=== PATIENT | male | born 1965 | race Caucasian/White ===

== ENCOUNTER 2020-01-03 23:31 | Inpatient (IN) | payer SELFPAY ==
--- NOTE | ~2020-01-03 | US_ITS ---
EXAMINATION: US renal BI EXAM DATE: 01/04/2020 11:04 INDICATION: Elevated creatinine. TECHNIQUE: Multiple grayscale and Doppler images of the kidneys were obtained (by a technologist who performed the scan) and subsequently reviewed. There is no prior study for comparison. FINDINGS: Right kidney: There is normal contour and echogenicity. It measures 11.1 x 5.3 x 5.7 centimeters. Th ere is a cyst measuring 8 cm in size. There is no hydronephrosis. Left kidney: There is normal contour and echogenicity. It measures 12.0 x 5.9 x 6.2 centimeters. Th ere are no focal renal lesions identified. There is no hydronephrosis. Bladder unremarkable. IMPRESSION: 1. Right renal cyst. No hydronephrosis. Reviewed, dictated and finalized at location B.
--- NOTE | ~2020-01-03 | CT_ITS ---
EXAMINATION: CT brain wo con EXAM DATE: 01/04/2020 10:22 INDICATION: Headache. TECHNIQUE: Spiral CT of the head was performed without contrast. Axial, coronal and sagittal images were reviewed. The dose-length product (DLP) for this examination was 605.33 mGy-cm. The exposure w as tailored according to patient size, and iterative reconstruction (ASIR) was used as additional dos e reduction technique. Comparison is made to prior examination from 05/12/2011. FINDINGS: Interval development of 5 mm hypodensity in the left thalamus, age indeterminate infarction (no history of symptomatology has been provided to suggest patient is having acute infarction). Ther e is also 3 x 7 mm hypodensity in the right cerebellum brachium pontis consistent with old infarction . Both of these findings are new compared to 2010. There is no acute intraparenchymal hemorrhage. No evidence of intraparenchymal brain mass lesion. There is no mass effect or midline shift. The vent ricles are normal in size. There are no extra-axial collections. There are no acute calvarial fract ures. The orbits are unremarkable. Soft tissue is unremarkable. The visualized sinuses and mastoid air cells are well aerated. IMPRESSION: 1. Left thalamic hypodensity, age indeterminate infarction. Clinical correlation for acute versus ch ronic finding. 2. 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 3. Otherwise unremarkable head CT. Reviewed, dictated and finalized at location B. IMPRESSION: 1. Left thalamic hypodensity, age indeterminate infarction. Clinical correlati on for acute versus chronic finding. 2. 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 3. Otherwise unremarkable head CT.
--- NOTE | ~2020-01-03 | XR_ITS ---
XR chest 2V DATE: 01/04/2020 00:28 INDICATION: Shortness of breath TECHNIQUE: PA and lateral views COMPARISON: None FINDINGS: Cardiomegaly. There is pulmonary vascular congestion. There is interstitial prominence with bilateral Octavia B lines consistent with pulmonary interstitial edema as well as some prominence of the fissures consistent with subpleural edema. There is minimal infiltrate or atelectasis at the lung bases. There is minimal if any pleural effusio n. No pneumothorax. Osteopenia. IMPRESSION: Congestive heart failure, pulmonary interstitial and subpleural edema Reviewed, dictated and finalized at location A. IMPRESSION: Congestive heart failure, pulmonary interstitial and subpleural shay disla
--- NOTE | ~2020-01-03 | US_ITS ---
EXAMINATION: US retroperitoneal duplex ltd DATE: 01/05/2020 11:57 INDICATION: Hypertension. TECHNIQUE: Multiple grayscale, color Doppler, and pulsed Doppler images of the kidneys and renal camille lizy were obtained. COMPARISON: CT abdomen and pelvis 02/24/2010 FINDINGS: The aorta peak systolic velocity is 96 cm/s. The right renal artery peak systolic velocity is 68 cm/s in the proximal segment, 48 cm/s in the mid segment, and 46 cm/s in the distal segment. The left kian al artery peak systolic velocity is 81 cm/s in the proximal segment, 47 cm/s in the mid segment, and 82 cm/s in the distal segment. There is a 4.5 cm fusiform infrarenal aortic aneurysm. IMPRESSION: 1. No Doppler evidence of renal artery stenosis. Note that the CT from 02/24/2010 similarly demonstrat es no significant renal artery stenosis. 2. 4.5 cm fusiform infrarenal aortic aneurysm, new from 02/24/2010. Reviewed, dictated and finalized at location A. IMPRESSION: 1. No Doppler evidence of renal artery stenosis. Note that the CT from 0 similarly demonstrates no significant renal artery stenosis. 2. 4.5 cm fusiform infrarenal aortic aneurysm, new from 02/24/2010.
[2020-01-03 23:35] VITALS: BP 229/157; PULSE 68; RESP 12; TEMP 36.6; O2SAT 98
--- NOTE | 2020-01-03 23:37 | ED.SOB ---
HPI - SOB/Dyspnea General Chief Complaint: Shortness of Breath/Dyspnea Stated Complaint: sob Time Seen by Provider: 01/03/20 23:35 Source: patient and RN notes reviewed Mode of arrival: ambulatory Limitations: no limitations History of Present Illness HPI Narrative: Pt is a 54 y/o male who presents to the ED with c/o SOB and cough starting 5 days ago. He notes that he has been congested over the past several days, stating that he has been intermittently producing phlegm with his cough. Pt also reports a subjective fever as of several days ago, rhinorrhea, and chest discomfort. He currently denies any fever or chest pain. MD elicited complaint: shortness of breath and cough Onset (ago): day(s) (5) Associated symptoms: fever (subjective fever (resolved)), chest congestion and other (chest discomfort; rhinorrhea) Related Data Home Medications Medication Instructions Recorded Confirmed irbesartan mg 01/03/20 metoprolol tartrate 01/03/20 Allergies Allergy/AdvReac Type Severity Reaction Status Date / Time Penicillins Allergy Mild Unknown Verified 01/03/20 23:47 Review of Systems Review of Systems: All systems reviewed & are unremarkable except as noted in HPI and below Constitutional: Constitutional: Reports fever(s) (subjective fever (resolved)) Cardiovascular: Cardiovascular: Denies chest pain and Reports other (chest discomfort) Respiratory: Respiratory: Reports chest congestion, Reports cough and Reports dyspnea PMFSH Past Medical History Medical History HTN (hypertension) Surgical History Surgical History Hx of eye surgery Social History Social History Smoking packs per day: 0.5 Smoking cigarettes per day: 10.0 Smoking status: Current every day smoker Exam Narrative: Exam Narrative: APPEARANCE: nontoxic, resting in bed EYES: EOMI HEENT: Normocephalic, atraumatic, OMM RESPIRATORY: Mildrespiratory distress wheezing the bilateral upper lung zuniga with fine crackles in the bases CARDIOVASCULAR: Regular rate and rhythm without murmurs rubs or gallops. ABDOMINAL: Soft, nontender, nondistended, no rebound or guarding MUSCULOSKELETAl: Moves all extremities. No clubbing, cyanosis 2+ edema the bilateral lower extremities NEURO: Awake and alert. Following commands, speech normal, no focal deficits SKIN:: Warm, dry. No rashes lesions or abrasions PSYCHIATRIC: Normal affect/mood, Course Course Emergency Course: Patient states that he has been taking his blood pressure medication as prescribed including his metoprolol this evening Coronary discussed with Dr. Chaudhry continued elevated blood pressure. At this time we will switch to an ICU bed and place patient on a nitroglycerin drip Discussed with Dr. Rock for ICU who accepts admission to the ICU at this time Patient is sitting up in the side of the bed. States he just feels he needs to take a deep breath. Is currently satting 100% on room air and then when you engage the patient he is able to converse state in full sentences he does state he feels mildly anxious but does not wish to have any anxiety medication at this time blood gas was obtained to further assess respiratory status Discussed with patient and family results of workup and diagnosis. Discussed need for admission. Patient and family understand and agree to current treatment plan Consultations Consultation #1: Discussed case with hospitalist, Dr. Chaudhry. Accepted admission. Date: 01/04/20 Time: 01:10 Vital Signs Vital signs: Vital Signs Temperature 97.9 F 01/03/20 23:35 Pulse Rate 68 01/03/20 23:35 Respiratory Rate 12 01/03/20 23:35 Blood Pressure 229/157 H 01/03/20 23:35 Pulse Oximetry 98 01/03/20 23:35 Temperature 98.5 F 01/04/20 01:21 Pulse Rate 58 L 01/04/20 01:21 Respiratory Rate 23 H 01/04/20 01:21 Blood Pressure
--- NOTE | 2020-01-03 23:38 | ECG_ITS ---
Measurements Intervals [place] Rate: 68 P: 47 [place]: 190 QRS: -50 QRSD: 126 T: 118 QT: 431 QTc: 461 Interpretive Statements SINUS RHYTHM LEFT ATRIAL ENLARGEMENT LEFT ANTERIOR FASCICULAR BLOCK LEFT VENTRICULAR HYPERTROPHY AND ST-T CHANGE BASELINE ARTIFACT- V1, V3 BORDERLINE ECG Electronically Signed On 01-04-2020 7:00:52 CDT by Mario Sanchez D.O.
[2020-01-03 23:45] VITALS: PULSE 63; O2SAT 97
[2020-01-03] MEDS: methylPREDNISolone SOD SUCC 125 MG VIAL IV PUSH (23:50)
[2020-01-04] VITALS (29 sets, daily range): BP systolic 136–227; BP diastolic 78–142; PULSE 47–67; RESP 15–24; TEMP 36.6–37.1; O2SAT 94–100; BMI 26.2
[2020-01-04 00:15] LABS: Lactic Acid Reflex 0.9 mmol/L (0.7-2.1)
[2020-01-04 00:27] LABS: Basophils Absolute Auto 0.1 K/mm3 (0.0-0.1); Basophils Percent Auto 0.6 % (0.2-1.2); Eosinophils Absolute Auto 0.2 K/mm3 (0-0.3); Eosinophils Percent Auto 1.5 % (0-4.4); Hematocrit 46.6 % (42.0-52.0); Hemoglobin 14.9 g/dL (14.0-18.0); Immature Granulocyte Absolute 0.03 K/mm3 (0.00-0.031); Immature Granulocyte Percent A 0.3 % (0-0.5); Immature Platelet Fraction Pct 13.6 % (0.9-11.2); Lymphocytes Absolute Auto 2.18 K/mm3 (0.9-3.2); Lymphocytes Percent Auto 18.5 % (18.3-44.2); Mean Corpuscular Hemoglobin 31.2 pg (26-34); Mean Corpuscular Volume 97.5 fl (80-100); Mean Platelet Volume 13.6 fl (7.4-10.4); Monocytes Absolute Auto 1.1 K/mm3 (0.1-0.6); Monocytes Percent Auto 8.9 % (2.6-8.5); Neutrophils Absolute Auto 8.3 K/mm3 (1.3-6.7); Neutrophils Percent Auto 70.2 % (45.5-73.1); Platelet Count Result 149 k/mm3 (150-375); Red Blood Count 4.78 M/mm3 (4.6-6.20); Red Cell Distribution Width 13.8 % (11.5-14.5); White Blood Count 11.8 K/mm3 (4.5-10.0)
[2020-01-04 00:34] LABS: INR 1.1; Prothrombin Time 13.6 Seconds (11.1-14.7)
[2020-01-04 00:35] LABS: Partial Thromboplastin Time 33.7 SECONDS (22.3-36.8)
[2020-01-04 00:38] LABS: Blood Urea Nitrogen 32 mg/dL (9-20); Calcium 8.8 mg/dL (8.4-10.2); Carbon Dioxide 21 mmol/L (22-30); Chloride 109 mmol/L (98-107); Estimated CRCL calculation 49 ml/min; Estimated Glomerular Filt Rate 40; Glucose 114 mg/dL (75-110); Potassium 4.4 mmol/L (3.4-5.0); Sodium 138 mmol/L (137-145)
[2020-01-04] MEDS: hydrALAZINE HCL 20 MG/ML VIAL 10 MG IV PUSH (00:52)
[2020-01-04 00:56] LABS: NT Pro B Type Natriuretic Pept 28200 PG/ML (5-100); Troponin I 0.036 ng/mL (0.000-0.034)
[2020-01-04 00:57] LABS: Alanine Aminotransferase 64 U/L (4-50); Albumin Level 4.3 g/dL (3.5-5.1); Alkaline Phosphatase 75 U/L (38-126); Aspartate Amino Transferase 43 U/L (17-59); Bilirubin,Total 0.6 mg/dL (0.2-1.3)
[2020-01-04] MEDS: ASPIRIN 81 MG CHEWABLE TABLET 324 MG PO ×2 (01:18→08:00)
[2020-01-04] MEDS: FUROSEMIDE INJ 40 MG/4 ML VIAL IV PUSH ×2 (01:18→08:00)
[2020-01-04] MEDS: NITROGLYCERIN/D5W 200 MCG/ML 50 MG/250 ML BTL IV CONT (02:10)
[2020-01-04 02:15] LABS: Alveolar/Arterial O2 Gradient 44.9 mmHg; Base Excess ABG -3.3 mEq/l (+/-2.0); Device ROOM AIR; Fractional Inspired Oxygen 21 %; HCO3 ABG 18.5 mEq/l (22.0-26.0); Modified Allen's Test Pass; Oxygen Content ABG 21.8 %vol (16.0-22.0); Oxygen Saturation ABG 95.8 % (95.0-100.0); Oxyhemoglobin 94.6 % THb (90.0-100.0); PCO2 ABG 26.3 mmHg (35.0-45.0); PO2 ABG 73.3 mmHg (80.0-100.0); PO2 FiO2 Ratio Arterial Blood 3.49 %; Site Drawn LEFT RADIAL; Total Hemoglobin 16.4 g/dL (12.0-18.0); pH ABG 7.465 (7.350-7.450)
[2020-01-04] MEDS: IPRATROPIUM BR 0.02% INH SOLN 0.5 MG/2.5 ML VIAL INHALATION ×5 (02:30→19:42)
[2020-01-04] MEDS: ALBUTEROL SULFATE NEB 2.5 MG/0.5 ML INH 5 MG INHALATION ×5 (02:30→19:42)
--- NOTE | 2020-01-04 03:26 | PM.IMHP ---
H&P: HPI History of Present Illness Chief complaint: Shortness of breath Narrative: Date and time of patient contact: 01/04/2020 at 3:35 a.m. Matthew Palacios is a 54 year old male of longstanding uncontrolledhypertension who presented to the ER due to shortness of breath. Patient reports that he has had shortness breath and cough for the last 5 days. He reports he has not slept during that time as he feels like he will stop breathing if he falls asleep. His shortness of breath has been worse with exertion. Today while at work he reported that he had depend over grasping his thighs and gasp for air. He has noticed that his abdomen has been more swollen this week and actually had to go buy a new pair pants because they were cutting into his stomach. He also feels as if his chest is swollen. He has 1+ pitting edema to his ankles but he had not noticed swelling in his ankles. he had not seen a doctor from the time he was in high school through 52 years of age. He went to the doctor at that time because he was having similar symptoms to his current presentation. He has been taking his metoprolol as directed. He has also been taking ibersartan. His primary care physician increased 1 of his antihypertensives 3 weeks ago when he went to the office. Patient's blood pressures at that time were 180 systolic. He denies any palpitations. He has noticed that his urine has been a little bit darker recently. He denies any dysuria or changes in urinary frequency. He usually urinates 5-6 times in a 24 hour period. He denies any hematochezia or melena. He has been referred for a screening colonoscopy. Patient reports that he has chronic headaches. His headaches are usually 9/10 in intensity. He states that he will take Tylenol for 1 month for his headaches then switched to ibuprofen for month and naproxen. He has been taking naproxen this month to treat his headaches. He states that he chews the naproxen before he swallows it so that he gets faster relief. He denies any heartburn or indigestion. He has been having a cough with minimal sputum production. He does continue to smoke half a pack of cigarettes per day since he was 25 years old. He has been having some mild rhinorrhea. He denies any fevers or chills. 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 Review of Systems Review of Systems: Narrative: Except as documented in the HPI, all other systems were reviewed and are negative. [facility] Past Medical History Medical History HTN (hypertension) Surgical History Surgical History Hx of eye surgery Family History Family History (Updated 01/04/20 @ 05:20 by Stacy Chaudhry DO) Mother Aneurysm, cerebral Hypertension Father Hypertension Social History Social History (Updated 01/04/20 @ 05:26 by Stacy Chaudhry DO) Social History: primary care physician: Dr. Harsh Tristan code status: Full code Smoking packs per day: 1 Smoking cigarettes per day: 20.0 Years smoked: 30 Smoking pack-years: 30.00 Smoking status: Current every day smoker Tobacco type: cigarettes Second hand tobacco smoke exposure: No Additional smoking assessment comments: 0.5 pack to 1 pack cigarettes per day since 25 years old. Alcohol intake: current Alcohol use details: The patient will drink an alcoholic beverage once or twice a year. Substance use: former Additional living arrangements comments: His daughter and her fiance live on the lower level of the home. He lives up stairs. 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 Gender identity (if verbalized by the patient): Male Spiritual care concerns: No Agree to blood products: Yes Meds Home Medications
--- NOTE | 2020-01-04 03:44 | ECG_ITS ---
Measurements Intervals [place] Rate: 59 P: 33 [place]: [id number] QRS: -43 QRSD: 126 T: 130 QT: 480 QTc: 476 Interpretive Statements SINUS BRADYCARDIA LEFT ATRIAL ENLARGEMENT LEFT AXIS DEVIATION DELAYED PRECORDIAL R/S TRANSITION LEFT VENTRICULAR HYPERTROPHY AND ST-T CHANGE BORDERLINE ECG Electronically Signed On 01-04-2020 7:03:04 CDT by Mario Sanchez D.O.
[2020-01-04] MEDS: NITROGLYCERIN/D5W 200 MCG/ML 50 MG/250 ML BTL 15 MG IV CONT (04:26)
[2020-01-04 04:29] LABS: Amphetamine Screen Urine Negative (Negative); Barbiturate Screen Urine Negative (Negative); Benzodiazepines Screen Urine Negative (Negative); Cannabinoid Screen Urine Negative (Negative); Cocaine Screen Urine Negative (Negative); Methadone Screen Urine Negative (Negative); Opiate Screen Urine Negative (Negative); Phencyclidine Screen Urine Negative (Negative)
[2020-01-04 04:36] LABS: Creatinine Urine 7.4 mg/dL; Urea Random Urine 85 MG/DL
[2020-01-04 04:37] LABS: Sodium Urine Random 132 meq/L
[2020-01-04 05:43] LABS: Troponin I 0.035 ng/mL (0.000-0.034)
[2020-01-04] MEDS: ACETAMINOPHEN 325 MG TABLET 650 MG PO ×2 (06:23→15:11)
[2020-01-04] MEDS: METOPROLOL TARTRATE 50 MG TAB 100 MG PO ×2 (07:59→16:16)
[2020-01-04] MEDS: IRBESARTAN 150 MG TABLET PO (07:59)
[2020-01-04] MEDS: AMLODIPINE BESYLATE 5 MG TABLET 10 MG PO (07:59)
[2020-01-04] MEDS: ENOXAPARIN 40 MG/0.4 ML SYRINGE SUB-Q (08:00)
[2020-01-04 08:07] LABS: Blood Urea Nitrogen 29 mg/dL (9-20); Calcium 9.4 mg/dL (8.4-10.2); Carbon Dioxide 23 mmol/L (22-30); Chloride 102 mmol/L (98-107); Estimated CRCL calculation 58 ml/min; Estimated Glomerular Filt Rate 49; Glucose 151 mg/dL (75-110); Potassium 3.8 mmol/L (3.4-5.0); Sodium 139 mmol/L (137-145)
[2020-01-04 08:18] LABS: Troponin I 0.031 ng/mL (0.000-0.034)
[2020-01-04] MEDS: POTASSIUM CHLORIDE 20 MEQ TABLET PO (08:26)
[2020-01-04 08:50] LABS: Add Urine Microscopic? YES; Appearance Urine Clear (Clear); Bacteria Urine Trace /hpf; Bilirubin Urine Negative (Negative); Blood Urine 1+ (Negative); Color Urine Straw (Yellow); Glucose Urine UA Negative (Negative); Ketones Urine Negative (Negative); Leukocyte Esterase Ur Negative LEU/UL (NEGATIVE); Mucus Urine Rare /lpf; Nitrate Urine Negative (Negative); Protein Urine 1+ mg/dL (Negative); RBC Urine 0-2 /hpf (0-2); Specific Grav Ur 1.011 (1.001-1.035); Squamous Epithelial Cell Urine Rare /hpf (Few); Urobilinogen Urine Negative mg/dL (<2.0); WBC Urine 0-3 /hpf (0-3)
--- NOTE | 2020-01-04 08:56 | WPDCN ---
Assessment and Plan Assessment and plan (1) CHF (congestive heart failure): Code(s): I50.9 - Heart failure, unspecified Status: Acute Assessment and Plan: Patient has developed acute heart failure, probably diastolic, secondary to his severe hypertension. Echo is pending to rule out underlying cardiomyopathy Discussed low-salt diet,deleterious effects of hypertension on end organs, avoidance of nonsteroidals need for follow-up etcetera Will continue current therapy and gradually wean off the IV nitroglycerin, aiming not to drop the blood pressure too far too fast. Systolic BP of 1 40-170 is reasonable for now. I told the patient we would not expect his blood pressure to be perfect but a lot better by discharge. (2) Hypertensive emergency: Code(s): I16.1 - Hypertensive emergency Status: Acute Assessment and Plan: Uncontrolled hypertension Can check renin and aldosterone levels, serum metanephrines, renal artery ultrasound etc. but likely this is simply essential hypertension (3) Acute renal insufficiency: Code(s): N28.9 - Disorder of kidney and ureter, unspecified Status: Acute Assessment and Plan: Acute renal insufficiency secondary to either uncontrolled hypertension (4) Tobacco use: Code(s): Z72.0 - Tobacco use Status: Acute (5) Elevated troponin: Code(s): R79.89 - Other specified abnormal findings of blood chemistry Status: Acute Assessment and Plan: Secondary to severe hypertension and CHF, no ACS HPI Data of Consult Date/Time: 01/03/20 08:56 Requesting Physician: Stacy Chaudhry DO Primary Care Provider: Harsh Tristan MD Consult Narrative Narrative: Date of service: 01/04/2020 Matthew Palacios is a 54 year old male were asked to see at the request of Dr. Chaudhry for advice and opinion regarding his hypertensive emergency and congestive heart failure, in consultation. Mr. Palacios has had hypertension for last 2 years and has been on treatment for about [address] Tristan increased his irbesartan about a month ago. Sounds like his blood pressure has not been near goal. The patient started having trouble with shortness of breath on Wednesday which progressed so that he was coughing and at times gasping for breath. He felt like his abdomen was swelling although he denied extremity edema. His headaches seem to be worse. PND, orthopnea, or chest pain. He came to the emergency room with shortness of breath and cough and was found to have a blood pressure of 229/157. He was in congestive heart failure. He has been admitted to the ICU on a nitroglycerin drip, which was up to 80 mics per minute now down to 45 mics per minute. In addition to his irbesartan and metoprolol, he has been given amlodipine furosemide and clonidine was just started. He is feeling better now but has cramping of his calf. The patient loves salt and salts everything. He also takes ibuprofen and Aleve frequently. No particular episodes of unexplained diaphoresis. He smokes 1 pack a day but has no hyperlipidemia or diabetes. Both parents had hypertension but no heart disease. Review of Systems Constitutional: Constitutional: Denies weakness Eyes: Eyes: Denies blurry vision ENT: Reports Normal hearing present, Denies epistaxis and Reports nasal congestion Cardiovascular: Cardiovascular: Denies chest pain, Denies diaphoresis, Denies leg edema, Denies lightheadedness and Denies palpitations Respiratory: Respiratory: Reports cough, Denies hemoptysis, Reports dyspnea and Reports dyspnea on exertion Gastrointestinal: Gastrointestinal: Denies abdominal pain, Denies constipation and Denies nausea Genitourinary: Genitourinary: Denies dysuria Musculoskeletal: Musculoskeletal: Denies back pain and Denies arthralgias Integumentary/Breasts: Skin/Breast: Denies rash Neurologic: Denies confusion, Reports headache(s) and Denies numbness Psychiatric: Psychiatric: Reports
[2020-01-04] MEDS: CLONIDINE HCL 0.1 MG TABLET PO ×2 (09:29→16:16)
[2020-01-04] MEDS: hydrALAZINE HCL 20 MG/ML VIAL IV PUSH (10:40)
--- NOTE | 2020-01-04 11:07 | WPDCNINT ---
Assessment and Plan Assessment and plan (1) CHF (congestive heart failure): Code(s): I50.9 - Heart failure, unspecified Status: Acute Assessment and Plan: Patient has developed acute heart failure, probably diastolic, secondary to his severe hypertension and acute renal failure Echo is pending to rule out underlying cardiomyopathy improved as patient on nitroglycerin infusion and the Lasix for volume overload (2) Pulmonary edema: Code(s): J81.1 - Chronic pulmonary edema Status: Acute Assessment and Plan: Patient now saturating well on room air continue Lasix influenza was negative in ER (3) Hypertensive emergency: Code(s): I16.1 - Hypertensive emergency Status: Acute Assessment and Plan: Uncontrolled hypertension patient's renal ultrasound is unremarkable patient was started on IV nitroglycerin infusion for blood pressure control. Continue to titrate and wean once p.o. medications effective patient resumed on his p.o. beta-wilian, ARB, and Norvasc p.o. clonidine added and p.r.n. IV hydralazine metanephrine level ordered by cardiology (4) Acute renal insufficiency: Code(s): N28.9 - Disorder of kidney and ureter, unspecified Status: Acute Assessment and Plan: Acute renal insufficiency secondary to either uncontrolled hypertension or NSAIDs renal ultrasound reviewed. Creatinine improved to 1.5 today monitor electrolytes urine output and creatinine check urine eosinophils blood pressure control (5) Elevated troponin: Code(s): R79.89 - Other specified abnormal findings of blood chemistry Status: Acute Assessment and Plan: Secondary to severe hypertension and CHF patient seen by Cardiology (6) COPD (chronic obstructive pulmonary disease): Code(s): J44.9 - Chronic obstructive pulmonary disease, unspecified Status: Acute Assessment and Plan: bronchodilators received steroid on admission monitor (7) Tobacco use: Code(s): Z72.0 - Tobacco use Status: Acute Assessment and Plan: counseled to quit Additional Plan DVT prophylaxis - Lovenox Stress ulcer prophylaxis - not indicate Code Status - Full Code 32 minutes spent in critical care activities Due to a high probability of clinically significant, life threatening deterioration, the patient required my highest level of preparedness to intervene emergently and I personally spent this critical care time directly and personally managing the patient. This critical care time included obtaining a history; examining the patient; pulse oximetry; ordering and review of studies; arranging urgent treatment with development of a management plan; evaluation of patient's response to treatment; frequent reassessment; and discussions with other providers. It was exclusive of separately billable procedures and treating other patients and teaching time. Please see Assessment and Plan section and the rest of the note for further information on patient assessment and treatment. Literature Professor Consult Note Consult date: 01/04/20 Time Seen: 10:30 HPI: Matthew Palacios is a 54 year old male With past medical history of uncontrolled hypertension and spotty compliance presented to ER yesterday with chief complaint of shortness of breath that started 5 days ago. Shortness of breath mainly on exertion. Also complained of orthopnea. Associated with headache. Denied any fever but did had sweats. also had cough which is nonproductive. No nasal congestion. his last blood pressure in the clinic was 180 when his medications were increased. Patient has been taking [id number] medications like Tylenol naproxen and ibuprofen for headache. ER patient was found to be hypertensive and had pulmonary edema along with acute renal failure. Patient was admitted to ICU, started on nitroglycerin infusion, given Lasix. No sick contact in last 2 weeks
--- NOTE | 2020-01-04 14:33 | PM.IMPN ---
Progress Note: A&P Assessment and Plan (1) Hypertensive emergency: Code(s): I16.1 - Hypertensive emergency Status: Acute Assessment and Plan: Longstanding poorly treated hypertension. EKG reveals LVH by voltage. Chest x-ray cardiomegaly. Probably some degree chronic renal failure. As per coin box collector nitroglycerin will be weaned as medication is suggested with the ARB, beta-wilian, calcium channel wilian and now clonidine.. Will have to be careful not to lower pressure too much so as not to worsen renal status (2) CHF (congestive heart failure): Code(s): I50.9 - Heart failure, unspecified Status: Acute Assessment and Plan: Echo has been ordered. Suspect there is some systolic as well as diastolic failure. On ARB and beta-wilian and being diuresed. Follow electrolytes and renal status (3) Acute renal insufficiency: Code(s): N28.9 - Disorder of kidney and ureter, unspecified Status: Acute Assessment and Plan: As above probably some component of chronic renal failure. Check UA, renal ultrasound, but it is encouraging his creatinine has fallen to 1.5 with diuresis (4) Elevated troponin: Code(s): R79.89 - Other specified abnormal findings of blood chemistry Status: Acute Assessment and Plan: Flat response and probably secondary to hypertension, CHF, and renal insufficiency. Echo will be assessed for wall motion abnormality (5) DVT prophylaxis: Code(s): Z29.9 - Encounter for prophylactic measures, unspecified Status: Acute Assessment and Plan: Lovenox Subjective Date/time seen: 01/04/20 14:33 Interval history: Date of visit 01/03. 54-year-old hypertensive white male admitted to hospital with shortness breath blood. Troponin and BNP was and found to be in congestive failure. Admitted ICU on nitroglycerin drip. No chest pain. Exam Narrative: Exam Narrative: Blood pressure 166/82 left arm sitting had been over 200 systolic on admission Pupils equal reactive to light sclera anicteric Lungs very faint crackle left posterior base CV regular no murmurs Abdomen soft nontender Extremities without edema dorsalis pedis posterior tibial 1 to 2+ Neuro alert pleasant cooperative no focal deficits Objective Data Vital Signs Vital Signs: Vital Signs - 24 hr 01/03/20 23:35 01/03/20 23:45 01/04/20 00:00 Temperature 36.6 C Pulse Rate 68 63 66 Respiratory Rate 12 24 H Blood Pressure 229/157 H Pulse Oximetry 98 97 01/04/20 00:12 01/04/20 00:32 01/04/20 01:21 Temperature 36.9 C Pulse Rate 62 57 L 58 L Respiratory Rate 20 18 23 H Blood Pressure 209/132 H 217/131 H Pulse Oximetry 97 99 01/04/20 01:36 01/04/20 02:09 01/04/20 02:31 Temperature Pulse Rate 62 58 L Respiratory Rate 22 H 22 H Blood Pressure 227/142 H 222/128 H Pulse Oximetry 100 01/04/20 02:34 01/04/20 02:36 01/04/20 02:39 Temperature Pulse Rate 60 63 Respiratory Rate 20 Blood Pressure Pulse Oximetry 96 01/04/20 03:02 01/04/20 06:00 01/04/20 07:59 Temperature 36.7 C Pulse Rate 64 55 L 57 L Respiratory Rate 20 Blood Pressure 211/120 H Pulse Oximetry 95 01/04/20 08:00 01/04/20 09:15 01/04/20 09:27 Temperature 36.6 C Pulse Rate 59 L 57 L 64 Respiratory Rate 18 20 20 Blood Pressure 177/120 H Pulse Oximetry 96 95 01/04/20 10:00 01/04/20 12:00 01/04/20 14:00 Temperature 37.1 C Pulse Rate 52 L 61 49 L Respiratory Rate 18 Blood Pressure 166/83 H Pulse Oximetry 99 Intake/Output Intake/Output: Intake & Output 01/01/20 01/02/20 01/03/20 01/04/20 23:59 23:59 23:59 23:59 Intake Total 760 Output Total 2600 Balance -1840 Meds/Results Medications: Active Medications Generic Name Dose Route Start Last Admin Trade Name Freq PRN Reason Stop Dose Admin Acetaminophen 650 mg 01/04/20 05:24 01/04/20 06:23 Tylenol Tablet PO 650 mg Q4H PRN Administration Pain
[2020-01-05] VITALS (14 sets, daily range): BP systolic 150–184; BP diastolic 85–114; PULSE 48–68; RESP 14–22; TEMP 36.5–36.8; O2SAT 96–99
[2020-01-05] MEDS: CLONIDINE HCL 0.1 MG TABLET PO ×2 (01:29→08:33)
[2020-01-05] MEDS: ALBUTEROL SULFATE NEB 2.5 MG/0.5 ML INH 5 MG INHALATION ×2 (02:01→08:16)
[2020-01-05] MEDS: IPRATROPIUM BR 0.02% INH SOLN 0.5 MG/2.5 ML VIAL INHALATION ×2 (02:01→08:16)
[2020-01-05] MEDS: hydrALAZINE HCL 20 MG/ML VIAL IV PUSH (02:03)
--- NOTE | 2020-01-05 06:00 | ECHO_ITS ---
Patient Info Name: Matthew Palacios Age: 54 years : 1965 Gender: Male Ht: 73 in Wt: 198 lbs BSA: 2.16 m2 HR: 67 bpm BP: 171 / 87 mmHg Heart Rhythm: Sinus Rhythm Technical Quality: Good Exam Date: 01/05/2020 7:31 AM Exam Location: [facility] Pulmonary Patient Status: Inpatient Admit Date: 01/04/2020 Staff Ordering Physician: Edmond Boss DO Plant Nursery Worker: Teddy Neal RDCS, RT Attending Provider: Stacy Chaudhry DO Referring Physician: Karyn MAI; Exam Type: CA echo doppler color flow Study Info Indications I50.9 - Heart failure, unspecified Complete two-dimensional, color flow and Doppler transthoracic echocardiogram is performed. Summary 1. Left ventricular chamber dimension is mildly enlarged. 2. Left ventricular systolic function is moderately reduced, estimated at 35-40%. 3. Left atrial chamber dimension is mildly enlarged. 4. No valvular lesions. 5. There is moderate concentric increased left ventricular wall thickness. Left Ventricle Left ventricular chamber dimension is mildly enlarged. Left ventricular systolic function is moderately reduced, estimated at 35-40%. There is moderate concentric increased left ventricular wall thickness. The left ventricular diastolic function is grade I diastolic dysfunction. Right Ventricle Right ventricular chamber dimension is normal. Left Atria Left atrial chamber dimension is mildly enlarged. Right Atria Right atrial chamber dimension is normal. Aortic Valve The aortic valve is trileaflet. Pulmonic Valve The pulmonic valve is not well visualized. Mitral Valve The mitral valve has normal leaflets. Tricuspid Valve The tricuspid valve leaflets are normal. Pericardium/Pleural The pericardium appears normal. Aorta The aortic root size at the sinus of Valsalva is normal. Left Ventricular Outflow Tract Name Value Normal LVOT 2D LVOT Diameter 2.4 cm LVOT Doppler LVOT Peak Gradient 4 mmHg LVOT Mean Gradient 2 mmHg LVOT VTI 17 cm LVOT VTI/AV VTI Ratio 0.6 LVOT Stroke Volume 78 ml LVOT CO 4.6 l/min LVOT CI 2.1 l/min/m2 Pulmonic Valve Name Value Normal PV Doppler PV Peak Gradient 3 mmHg Mitral Valve Name Value Normal MV Doppler MV Decel Rich 170 cm/s2 MV PHT 94 ms MV Area (PHT) 2.3 cm2 4
[2020-01-05 06:43] LABS: Albumin Level 4.1 g/dL (3.5-5.1); Blood Urea Nitrogen 33 mg/dL (9-20); Calcium 9.2 mg/dL (8.4-10.2); Carbon Dioxide 23 mmol/L (22-30); Chloride 103 mmol/L (98-107); Estimated CRCL calculation 58 ml/min; Estimated Glomerular Filt Rate 49; Glucose 123 mg/dL (75-110); Phosphorus 3.4 mg/dL (2.5-4.5); Potassium 4.4 mmol/L (3.4-5.0); Sodium 136 mmol/L (137-145)
[2020-01-05 08:28] LABS: Basophils Percent Auto 0.3 % (0.2-1.2); Eosinophils Percent Auto 0.2 % (0-4.4); Hematocrit 51.3 % (42.0-52.0); Hemoglobin 16.9 g/dL (14.0-18.0); Immature Granulocyte Absolute 0.05 K/mm3 (0.00-0.031); Immature Granulocyte Percent A 0.3 % (0-0.5); Immature Platelet Fraction Pct 12.6 % (0.9-11.2); Lymphocytes Absolute Auto 1.84 K/mm3 (0.9-3.2); Lymphocytes Percent Auto 12.7 % (18.3-44.2); Mean Corpuscular HGB Conc 32.9 g/dl (32-36); Mean Corpuscular Hemoglobin 31.2 pg (26-34); Mean Corpuscular Volume 94.6 fl (80-100); Mean Platelet Volume 13.7 fl (7.4-10.4); Monocytes Absolute Auto 1.1 K/mm3 (0.1-0.6); Monocytes Percent Auto 7.8 % (2.6-8.5); Neutrophils Absolute Auto 11.4 K/mm3 (1.3-6.7); Neutrophils Percent Auto 78.7 % (45.5-73.1); Platelet Count Result 166 k/mm3 (150-375); Red Blood Count 5.42 M/mm3 (4.6-6.20); Red Cell Distribution Width 14.4 % (11.5-14.5); White Blood Count 14.5 K/mm3 (4.5-10.0)
[2020-01-05] MEDS: ACETAMINOPHEN 325 MG TABLET 650 MG PO (08:33)
[2020-01-05] MEDS: IRBESARTAN 150 MG TABLET PO (08:33)
[2020-01-05] MEDS: AMLODIPINE BESYLATE 5 MG TABLET 10 MG PO (08:33)
[2020-01-05] MEDS: POTASSIUM CHLORIDE 20 MEQ TABLET.ER PO (08:33)
[2020-01-05] MEDS: METOPROLOL TARTRATE 50 MG TAB 100 MG PO (08:33)
[2020-01-05] MEDS: ASPIRIN 81 MG CHEWABLE TABLET 324 MG PO (08:33)
[2020-01-05] MEDS: FUROSEMIDE INJ 40 MG/4 ML VIAL IV PUSH (08:34)
--- NOTE | 2020-01-05 09:05 | WPDINTPN ---
Progress Note: A&P Assessment and Plan (1) CHF (congestive heart failure): Code(s): I50.9 - Heart failure, unspecified Status: Acute Assessment and Plan: Patient has developed acute heart failure, probably diastolic, secondary to his severe hypertension and acute renal failure Echo is pending to rule out underlying cardiomyopathy symptoms have improved and patient has been off of nitroglycerin infusion and continues to be on Lasix. Cardiology is following (2) Pulmonary edema: Code(s): J81.1 - Chronic pulmonary edema Status: Acute Assessment and Plan: Patient now saturating well on room air continue Lasix influenza was negative in ER (3) Hypertensive emergency: Code(s): I16.1 - Hypertensive emergency Status: Acute Assessment and Plan: Uncontrolled hypertension patient's renal ultrasound is unremarkable patient was started on IV nitroglycerin infusion for blood pressure control. Continue to titrate and wean once p.o. medications effective patient resumed on his p.o. beta-wilian, ARB, and Norvasc p.o. clonidine was added and patient on p.r.n. IV hydralazine metanephrine level ordered by cardiology further adjustment in medications as per Cardiology as patient will be transferred out of ICU today (4) Acute renal insufficiency: Code(s): N28.9 - Disorder of kidney and ureter, unspecified Status: Acute Assessment and Plan: Acute renal insufficiency secondary to either uncontrolled hypertension or NSAIDs renal ultrasound reviewed. Creatinine appears to have stabilized at 1.5 which may be patient's baseline as no recent records available continue to monitor monitor electrolytes urine output and creatinine urine eosinophils ordered and pending blood pressure control (5) Elevated troponin: Code(s): R79.89 - Other specified abnormal findings of blood chemistry Status: Acute Assessment and Plan: Secondary to severe hypertension and CHF patient seen by Cardiology (6) COPD (chronic obstructive pulmonary disease): Code(s): J44.9 - Chronic obstructive pulmonary disease, unspecified Status: Acute Assessment and Plan: bronchodilators received steroid on admission monitor (7) Tobacco use: Code(s): Z72.0 - Tobacco use Status: Acute Assessment and Plan: counseled to quit Additional Plan DVT prophylaxis - Lovenox Stress ulcer prophylaxis - not indicate Code Status - Full Code transfer out of ICU today as patient is on room air, asymptomatic and off of nitroglycerin infusion for more than 24 hours Subjective Date/time seen: 01/05/20 0830 patient feels much better today with no new complaints. He slept well and ate his dinner last night. He denies any headache shortness of breath cough or chest pain. He would like to go home if possible Review of Systems Review of Systems: All systems reviewed & are unremarkable except as noted in HPI and below Exam Narrative: Exam Narrative: General: Pt is alert awake and in NAD Lungs/Chest: Trachea central Clear BS B/L, No crackles or wheezing. Cardiac: RRR. Normal S1 S2. No murmurs Circulation: Pedal pulses are intact and symmetrical. Abdomen: Normal bowel sounds.. Soft. NT. ND. Extremities: No clubbing, cyanosis or edema. Warm : Allen in place Neurologic: Follows commands. Moves all 4 extremities PERRL Skin: No Rash Objective Data Vital Signs Vital Signs: Vital Signs - 24 hr 01/04/20 09:15 01/04/20 09:27 01/04/20 10:00 Temperature Pulse Rate 57 L 64 52 L Respiratory Rate 20 20 Blood Pressure Pulse Oximetry 95 01/04/20 12:00 01/04/20 14:00 01/04/20 14:41 Temperature 37.1 C Pulse Rate 61 49 L 64 Respiratory Rate 18 15 Blood Pressure 166/83 H Pulse Oximetry 99 01/04/20 14:53 01/04/20 16:00 01/04/20 16:16 Temperature 37.1 C Pulse Rate 61 63 59 L Respiratory Rate 15 20 Bl
--- NOTE | 2020-01-05 09:33 | PM.PNCARD ---
Progress Note: A&P Assessment and Plan (1) CHF (congestive heart failure): Qualifiers: Heart failure chronicity: acute Code(s): I50.9 - Heart failure, unspecified Status: Acute Assessment and Plan: He has developed acute heart failure, probably diastolic, secondary to his severe hypertension. Echo pending. Completed just this morning. Euvolemic. Lungs are clear. On room air. No edema. Able to lay flat in bed. Stop IV Lasix. (2) Hypertensive emergency: Code(s): I16.1 - Hypertensive emergency Status: Acute Assessment and Plan: Blood pressure improved. Renin and aldosterone levels, serum metanephrines pending. Renal ultrasound to rule out renal artery stenosis to be done today Heart rate in the 50s when he is asleep. Continue Metoprolol tartrate 100 mg q.12 hours, amlodipine 10 mg daily, irbesartan 150 mg daily, clonidine 0.1 mg every 8 hours. Blood pressure reasonably controlled at this point however has been getting hydralazine p.r.n.. Stop p.r.n. hydralazine. (3) Acute renal insufficiency: Code(s): N28.9 - Disorder of kidney and ureter, unspecified Status: Acute Assessment and Plan: Acute renal insufficiency secondary uncontrolled hypertension (4) Tobacco use: Code(s): Z72.0 - Tobacco use Status: Acute Assessment and Plan: Discussed smoking cessation. (5) Elevated troponin: Code(s): R79.89 - Other specified abnormal findings of blood chemistry Status: Acute Assessment and Plan: Secondary to severe hypertension and CHF, no ACS Additional Plan If echocardiogram is not dramatically abnormal he could be discharged home today. Follow-up with primary care provider. He does not need cardiology follow up Plan discussed Dr. Malik [id number] 01/05/2020 Subjective Date/time seen: 01/05/20 09:33 Interval history: Follow-up for: Hypertensive emergency, acute heart failure Date of service: 01/05/2020 Subjective: Feeling fairly well this morning. Wants to go home. He is a very active uma and sitting still is difficult. Denied chest discomfort, shortness of breath, lightheadedness or palpitations. Lying flat in bed. Review of Systems Constitutional: Constitutional: Denies fatigue and Denies weakness Eyes: Eyes: Denies blurry vision ENT: Reports Normal hearing present and Denies nasal congestion Cardiovascular: Cardiovascular: Denies chest pain, Denies diaphoresis, Denies pedal edema, Denies leg edema, Denies lightheadedness, Denies palpitations, Denies dyspnea on exertion and Denies orthopnea Respiratory: Respiratory: Denies cough, Denies dyspnea on exertion and Denies wheezing Gastrointestinal: Gastrointestinal: Denies abdominal pain and Denies bloating Genitourinary: Genitourinary: Denies hematuria Musculoskeletal: Musculoskeletal: Denies back pain and Denies neck pain Integumentary/Breasts: Skin/Breast: Denies dry skin and Denies unusual bruising Neurologic: Reports headache(s) (Resolving with Tylenol) Psychiatric: Psychiatric: Denies anxiety Exam Narrative: Exam Narrative: Lying flat in bed. Const: General: cooperative and comfortable Nutritional Appearance: average body habitus Orientation/consciousness: patient oriented x3 Limitations: no limitations HENMT: Mouth: Yes moist mucous membranes Eyes: General: appearance normal, both eyes and all related structures Neck: Neck: supple and no JVD Chest: Chest palpation & inspection: normal inspection of the chest Resp: Effort & Inspection: normal respiratory effort and able to speak in complete sentences Auscultation: clear to auscultation bilaterally Cardio: Rate: regular rate Rhythm: regular rhythm Heart sounds: Gallop heart sound present S4 gallop and no murmurs
--- NOTE | 2020-01-05 17:34 | PM.DS ---
DS: Diagnosis Admitting Diagnosis Admitting Diagnosis: Hypertensive emergency Discharge Diagnosis (1) Hypertensive emergency: Code(s): I16.1 - Hypertensive emergency Status: Acute Assessment and Plan: Longstanding poorly controlled hypertension. EKG reveals LVH by voltage. Chest x-ray cardiomegaly. some degree chronic renal failure. nitroglycerin drip was used initially to control bp and weaned as medication with the ARB, beta-wilian, calcium channel wilian and now clonidine were added.. Will have to be careful not to lower pressure too much so as not to worsen renal status bp at d/c 164/92 no renal artery stenosis on Doppler (2) CHF (congestive heart failure): Qualifiers: Heart failure chronicity: acute Code(s): I50.9 - Heart failure, unspecified Status: Acute Assessment and Plan: Echo revealed ejection fraction of 35-40% with diastolic dysfunction also.. On ARB and beta-wilian were continued and was diuresed. Did not seems in eating chronic diuretic therapy and will be monitored as an outpatient (3) Acute renal insufficiency: Code(s): N28.9 - Disorder of kidney and ureter, unspecified Status: Acute Assessment and Plan: As above probably some component of chronic renal failure. UA normal with 1+ protein, renal ultrasound no obstruction with benign cyst, and creatinine was 1.5 on the 12th and the 13th probably his baseline (4) Elevated troponin: Code(s): R79.89 - Other specified abnormal findings of blood chemistry Status: Acute Assessment and Plan: Flat response and probably secondary to hypertension, CHF, and renal insufficiency. Echo did not reveal any wall motion abnormality and patient was seen in consultation by Cardiology (5) Abdominal aortic aneurysm: Code(s): I71.4 - Abdominal aortic aneurysm, without rupture Status: Acute Assessment and Plan: 4.5 cm infrarenal abdominal aortic aneurysm was identified when assessing his renal arteries. Asymptomatic and cannot be felt on physical exam. Patient was instructed follow-up with primary care to have repeat sonogram within 6 months and probable referral to vascular surgeon Because of the aneurysm he was started on a statin and aspirin 81 mg daily. DS: Summary Hospital Course Hospital Course: 54-year-old hypertensive white male presented to the emergency room with increasing shortness of breath. Blood pressure markedly elevated systolics over 200 and was placed on a nitroglycerin drip until oral medication could take effect. His in mild failure and was diuresed with Lasix also. With addition of amlodipine 10 clonidine 0.1 b.i.d. his irbesartan 150 daily and metoprolol 100 b.i.d. his pressure was down to 164/92 at discharge. We did not want to lower his pressure any quicker for fear worsening his renal status. Renal sonogram showed no obstruction with normal-sized kidneys Abdominal aortic aneurysm found on sonogram and will need follow-up with his primary care for repeat sonogram in 6 months and probably referral to vascular surgeon Time Spent with Patient Time attestation: Total time spent providing and/or coordinating discharge services: 35 minutes Exam Narrative: Exam Narrative: Condition on discharge blood pressure 164/92 pulse 54 sat 97% on room air Lungs clear CV regular rate rhythm no murmurs Abdomen is soft nontender Extremities without edema distal pulses are 2+ Neuro alert pleasant cooperative no focal deficits DS: Data Data Completed and Pending Labs on day of discharge: Labs from last 24 hours 01/05/20 01/05/20 01/05/20 08:07 06:21 06:15 WBC 14.5 H RBC 5.42 Hgb 16.9 Hct 51.3 MCV 94.6 MCH 31.2 MCHC 32.9 RDW 14.4 Plt Count 166 MPV 13.7 H Immature Gran % (Auto) 0.3 Neut % (Auto) 78.7 H Lymph % (Auto) 12.7 L Snyder % (Auto) 7.8 Eos % (Auto) 0.2 Baso % (Auto) 0.3 Lymph # (Auto) 1.84 Snyder #
[2020-01-09 15:58] LABS: Metanephrine, Free 52 pg/mL (<=57); Normetanephrine, Free 121 pg/mL (<=148); Total, Free (MN + NMN) 173 pg/mL (<=205)
[2020-01-12 12:44] LABS: PRA 0.12 ng/mL/h (0.25-5.82)
== END 2020-01-05 14:55 | disposition home or self-care (01) | DRG 199 ==
LOC: ANHED 01-04 01:16 → ANHIMU 01-04 01:24 → ANHICU 01-04 01:48
PROVIDERS: Internal Medicine; Internal Medicine Cardiovascular Disease; Admitting Provider Internal Medicine; Emergency Provider Emergency Medicine; PCP Emergency Medicine; Visit Provider Internal Medicine
DX: I16.1 Hypertensive emergency (principal); I13.0 Hypertensive heart and chronic kidney disease with heart failure and stage 1 through stage 4 chronic kidney disease, or unspecified chronic kidney disease; N18.9 Chronic kidney disease, unspecified; I71.4 Abdominal aortic aneurysm, without rupture; F17.210 Nicotine dependence, cigarettes, uncomplicated; J81.1 Chronic pulmonary edema; I50.31 Acute diastolic (congestive) heart failure; J44.9 Chronic obstructive pulmonary disease, unspecified; R79.89 Other specified abnormal findings of blood chemistry
CPT/HCPCS: 36415; 36600; 70450; 71046; 76775; 80048; 80069; 80076; 80307; 81001; 82088; 82570; 82805; 83605; 83835; 83880; 84244; 84300; 84484; 84540; 85025; 85055; 85610; 85730; 85999; 87040; 87081; 87804; 93005; 93306; 93976; 94640; 96365; 96366; 96372; 96374; 96375; 96376; 99285; A9270; G0378; G0379; J0360; J1650; J1940; J2930

== ENCOUNTER 2021-03-07 09:42 | Outpatient (CLI) | payer SELFPAY ==
--- NOTE | ~2021-03-07 | US_ITS ---
US abdomen complete DATE: 03/07/2021 11:14 INDICATION: Abdominal aortic aneurysm TECHNIQUE: Real-time imaging and Doppler analysis of the abdomen COMPARISON: 03/23/2010 CT abdomen pelvis FINDINGS: No hepatic or pancreatic space-occupying mass lesion is evident. Normal hepatopedal portal venous flow direction. No gallbladder wall thickening or gallstones. Negative sonographic Neal's sign. Common bile duct me asures 5.3 mm, within normal range. 6.7 x 8 cm upper pole right renal cyst. 1.8 x 2.3 cm left renal septated cyst. No hydronephrosis of either kidney. Normal splenic size. Up to 5.5 x 5.7 cm abdominal aortic aneurysm terminating proximal to the aortic bifurcation.] Demonst rated in the inferior vena cava. IMPRESSION: Bilateral renal cysts Up to 5.7 cm abdominal aortic aneurysm Reviewed, dictated and finalized at [facility]. Reviewed, dictated and finalized at [facility].
== END 2021-03-07 09:43 ==
PROVIDERS: PCP Emergency Medicine; Visit Provider Emergency Medicine
DX: I71.4 Abdominal aortic aneurysm, without rupture (principal); N28.1 Cyst of kidney, acquired
CPT/HCPCS: 76700